=== PATIENT | male | born 1985 | race African-American/Black ===

== ENCOUNTER 2017-02-12 05:47 | Emergency (ER) | payer SELFPAY ==
[~2017-02-12] VITALS: Ht 182.9 cm; Wt 113.4 kg
[2017-02-12 06:00] VITALS: BP 133/89
== END 2017-02-12 10:06 | disposition home or self-care (01) ==
LOC: ER 05:50
DX: S40.012A Contusion of left shoulder, initial encounter (principal); M54.12 Radiculopathy, cervical region; M47.892 Other spondylosis, cervical region; M62.838 Other muscle spasm; V49.59XA Passenger injured in collision with other motor vehicles in traffic accident, initial encounter; Y93.89 Activity, other specified; Y99.8 Other external cause status; Y92.410 Unspecified street and highway as the place of occurrence of the external cause
CPT/HCPCS: 70450; 72125; 73030; 99284; J7030

== ENCOUNTER 2021-10-15 22:38 | Emergency (ER) | payer SELFPAY ==
[~2021-10-15] VITALS: Ht 182.9 cm; Wt 118.0 kg
[2021-10-15 23:02] VITALS: BP 129/92
== END 2021-10-16 01:23 | disposition home or self-care (01) ==
LOC: ER 22:38
DX: R13.10 Dysphagia, unspecified (principal)

== ENCOUNTER 2022-06-05 13:04 | Day surgery (SDC) | payer MEDICAID ==
[2022-06-04 10:43] LABS: Basophils # (auto) 0 10 ^3/uL (0-0.2); Eosinophils # (auto) 0.1 10 ^3/uL (0-0.8); Lymphocytes # (auto) 2.5 10 ^3/uL (0.4-5.4); Mean Corpuscular Hemoglobin 26.3 pg (28.0-32.0); Neutrophils # (auto) 2.3 10 ^3/uL (1.6-8.6); Red Cell Distribution Width 14.5 % (11.8-14.3); White Blood Cell 5.5 10^3/uL (4.4-10.8)
[2022-06-04 10:45] LABS: Basophils % (auto) 0.7 % (0.0-2.0); Eosinophils % (auto) 2.7 % (0.0-7.0); Hematocrit 41.7 % (41.0-53.0); Hemoglobin 13.8 g/dL (13.5-17.5); Lymphocytes % (auto) 46.7 % (10.0-50.0); Mean Corpuscular Volume 79.7 fL (80.0-100.0); Monocytes # (auto) 0.4 10 ^3/uL (0-1.3); Monocytes % (auto) 7.5 % (0.0-12.0); Neutrophils % (auto) 42.4 % (37.0-80.0); Nucleated Red Blood Cells % 0.1 %; Red Blood Cells 5.24 10^6/uL (4.5-5.90)
[2022-06-04 11:16] LABS: INR 1.02 (0.9-1.15); Partial Thromboplastin Time 31.3 sec (24.6-33.4)
[2022-06-04 12:06] LABS: Potassium 4.6 mmol/L (3.5-5.1)
[2022-06-04 12:26] LABS: Albumin 4.2 g/dL (3.4-5.0); BUN/Creatinine Ratio 10.6 (10.0-20.0); Bilirubin, Total 0.6 mg/dL (0.2-1.0); Calcium 9.2 mg/dL (8.5-10.1); Total Protein 7.4 g/dL (6.4-8.2)
[~2022-06-05] VITALS: Ht 182.9 cm; Wt 102.1 kg
[2022-06-05] MEDS ORDERED: MIDAZOLAM HCL 2MG/2ML 2ml VIAL (1mg/ml) ONE ×2 (15:10→15:41)
[2022-06-05] MEDS ORDERED: diphenhdrAMINE HCL 50 MG/1 ML VL ONE (15:10)
[2022-06-05] MEDS ORDERED: fentaNYL CITRATE 100 MCG/2 ML VL ONE ×2 (15:10→15:40)
[2022-06-05] MEDS ORDERED: LIDOCAINE VISCOUS 2% 15ML UD ONE (15:10)
[2022-06-05] MEDS ORDERED: GLYCOPYRROLATE 0.2 MG/ML 1ML VIAL ONE (15:44)
[2022-06-05] MEDS ORDERED: ONDANSETRON HCL 4 MG/2 ML VIAL ONE (15:44)
[2022-06-05] MEDS ORDERED: PROPOFOL 10 MG/ML 20 ML IV ONE (15:44)
[2022-06-05] MEDS ORDERED: LIDOCAINE 2% (LOCAL ANESTH.) PF 5ml SDV ONE (15:44)
[2022-06-05 16:00] VITALS: BP 128/74
[2022-06-05] MEDS ORDERED: ONDANSETRON HCL 4 MG/2 ML VIAL IV PRN (16:15)
[2022-06-05] MEDS ORDERED: HYDROmorphone HCL 2 MG/ML VL/or syr IV PRN (16:15)
== END 2022-06-05 16:45 | disposition home or self-care (01) ==
LOC: GI 13:04
PROVIDERS: ATTEND Internal Medicine Gastroenterology
DX: K21.00 Gastro-esophageal reflux disease with esophagitis, without bleeding (principal); R13.12 Dysphagia, oropharyngeal phase; K44.9 Diaphragmatic hernia without obstruction or gangrene; K29.80 Duodenitis without bleeding; K29.50 Unspecified chronic gastritis without bleeding; Z20.822 Contact with and (suspected) exposure to COVID-19
CPT/HCPCS: 36415; 43239; 43450; 80053; 85025; 85610; 85730; J2001; J2250; J2405; J2704; J3010; J7030; U0003